=== PATIENT | male | born 1950 | race African-American/Black ===

== ENCOUNTER 2016-05-23 10:44 | Day surgery (SDC) | payer BC ==
[2016-05-16 11:42] LABS: HEMATOCRIT 43.8 % (40.0-51.0); HEMOGLOBIN 15.1 g/dL (13.6-17.8)
[2016-05-16 11:54] LABS: BUN (BLOOD UREA NITROGEN) 18 MG/DL (6-23); CHLORIDE, SERUM 110 MMOL/L (96-112); CO2 (CARBON DIOXIDE) 22 MMOL/L (24-34); CREATININE 1.32 MG/DL (0.70-1.30); GFR AFRICAN AMERICAN 64 ML/MIN (>=60); GFR NON AFRICAN AMERICAN 55 ML/MIN (>=60); GLUCOSE, SERUM 158 MG/DL (60-99); POTASSIUM, SERUM 3.7 MMOL/L (3.5-5.3); SODIUM, SERUM 143 MMOL/L (135-148)
[~2016-05-23 10:44] MED LIST: *UNABLE1; ASAB PO; B12250T PO; DOX25 PO; LOP25 PO; MULTIVITAMI1 PO; NORV10 PO; PR12.5 PO; PRILOSEC40 MG PO; PRIN20 PO; REMERON45 MG PO; RESTORIL30 MG PO; RISP1 PO; ULTRAM50 PO; XOPENEX HFA INH; XOPENEX1.25 MG/3 INH; ZESTRIL10 MG PO
[2016-11-06] MEDS ORDERED: NORCO1 TAB PO (13:47)
== END 2016-05-23 23:59 | disposition home health service (06) ==
LOC: IMGHOLD 10:44
PROVIDERS: Nurse Practitioner Family
DX: M54.40 Lumbago with sciatica, unspecified side (principal); M54.16 Radiculopathy, lumbar region; M06.9 Rheumatoid arthritis, unspecified; I10 Essential (primary) hypertension; G47.30 Sleep apnea, unspecified; Z99.81 Dependence on supplemental oxygen; Z98.890 Other specified postprocedural states; Z79.899 Other long term (current) drug therapy; Z88.8 Allergy status to other drugs, medicaments and biological substances; Z71.89 Other specified counseling; Z87.891 Personal history of nicotine dependence
CPT/HCPCS: 72148; 80048; 85014; 85018; 93005